=== PATIENT | male | born 1970 | race Caucasian/White ===

== ENCOUNTER → 2017-08-30 | Outpatient (REF) | payer OTHER ==
[2017-08-30 10:41] LABS: IMMMOTILE SPERM CENTRIFUGED ABSENT (ABSENT); IMMOTILE SPERM ABSENT (ABSENT); MOTILE SPERM ABSENT (ABSENT); MOTILE SPERM CENTRIFUGED ABSENT (ABSENT); SEMEN APPEARANCE OPAQUE (OPAQUE); SEMEN VISCOSITY LIQUID (LIQUID); SEMEN pH 8.5 (7.0-8.0); WBC CONCENTRATION >1 M/ml (<=1 M/ml)
== END ==
LOC: M SMT 09:34
DX: Z98.52 Vasectomy status (principal)

== ENCOUNTER → 2018-08-18 | Outpatient (CLI) | payer OTHER ==
--- NOTE | 2018-08-18 19:14 | REP ---
Scrotal sonography: History: Testicular pain. Findings: High-resolution bilateral scrotal sonography is performed. There is no evidence of intratesticular mass on either side. There is a small amount of right-sided hydrocele fluid. There is a 2 mm cyst in the lower pole of the right testis. There is a 2 mm right-sided epididymal cyst. A 7 mm left-sided epididymal cyst is seen. Doppler flow is normal to both testes. Resistive indices are measured at 0.6 on the right and 0.47 on the left. The right testis measures 4.6 x 1.9 x 2.9 cm. Left testicular dimensions are 4.2 x 1.5 x 2.3 cm. Impression: No significant abnormality. Electronically Signed by David Peoples MD 08/18/2018 08:16 P
== END ==
LOC: M RAD 17:32
PROVIDERS: ATTEND Nurse Practitioner Women's Health
DX: N50.819 Testicular pain, unspecified (principal)

== ENCOUNTER → 2020-01-20 | Outpatient (CLI) | payer OTHER | LOC: M LABSMTC 11:04 | PROVIDERS: ATTEND Anesthesiology | DX: Z01.818 Encounter for other preprocedural examination (principal); Z11.59 Encounter for screening for other viral diseases; Z20.828 Contact with and (suspected) exposure to other viral communicable diseases | CPT/HCPCS: C9803; U0003 ==

== ENCOUNTER 2020-01-25 10:48 | Day surgery (SDC) | payer OTHER ==
[~2020-01-25] VITALS: Ht 188 cm; Wt 114.7 kg
[~2020-01-25 10:48] MED LIST: NS 1,000 ML IV ONE
[2020-01-25] MEDS ORDERED: LIDOCAINE 2% 100MG/5ML SDV (FOR ANES.) As Ordered ONE (11:50)
[2020-01-25] MEDS ORDERED: propofoL 500 MG/50 ML VIAL As Ordered ONE (11:50)
--- NOTE | 2020-01-25 12:13 | ROOR ---
Patient Name: Jerry Uriostegui Procedure Date: 01/25/2020 11:48 AM Date of : 1970 Age: 49 Room: [facility] Gender: Male Note Status: Finalized Procedure: Total Colonoscopy to Cecum Indications: Colon cancer screening in patient at increased risk: Colorectal cancer in father Providers: Alec Gardner MD Referring MD: 1. No Referring Physician 1. No Referring Physician, Admin. Requesting Provider: Medicines: Monitored Anesthesia Care Complications: No immediate complications. Procedure: Pre-Anesthesia Assessment: - The heart rate, respiratory rate, oxygen saturations, blood pressure, adequacy of pulmonary ventilation, and response to care were monitored throughout the procedure. The Colonoscope was introduced through the anus and advanced to the cecum, identified by appendiceal orifice and ileocecal valve. The colonoscopy was performed without difficulty. The patient tolerated the procedure well. The quality of the bowel preparation was good. Findings: The perianal and digital rectal examinations were normal. Non-bleeding internal hemorrhoids were found during retroflexion. The hemorrhoids were small and Grade I (internal hemorrhoids that do not prolapse). No other significant abnormalities were identified in a careful examination of the remainder of the colon. The exam was otherwise without abnormality on direct and retroflexion views. Impression: - Non-bleeding internal hemorrhoids. - The examination was otherwise normal on direct and retroflexion views. - No specimens collected. - The exam was otherwise normal to the cecum. Recommendation: - Patient has a contact number available for emergencies. The signs and symptoms of potential delayed complications were discussed with the patient. Return to normal activities tomorrow. Written discharge instructions were provided to the patient. - High fiber diet. - Discharge patient to home. - Continue present medications. - Repeat colonoscopy in 5 years for screening purposes. - Return to referring physician. - The findings and recommendations were discussed with the patient. Alec Gardner MD Alec Gardner MD 01/25/2020 12:12:57 PM Electronically signed by Alec Gardner MD Number of Addenda: 0 Note Initiated On: 01/25/2020 11:48 AM Estimated Blood Loss: Estimated blood loss: none.
[2020-01-25 12:35] VITALS: BP 174/81
== END 2020-01-25 13:01 | disposition home or self-care (01) ==
LOC: M OPP 10:48
PROVIDERS: ATTEND Internal Medicine Gastroenterology
DX: Z12.11 Encounter for screening for malignant neoplasm of colon (principal); Z80.0 Family history of malignant neoplasm of digestive organs; K64.0 First degree hemorrhoids

== ENCOUNTER 2020-04-09 15:26 | Emergency (ER) | payer OTHER ==
[2020-04-09 15:42] VITALS: BP 131/83
[2020-04-09] MEDS ORDERED: ONDA4TAB6 PO (15:57)
== END 2020-04-09 16:11 | disposition home or self-care (01) ==
LOC: M ED 15:26
DX: U07.1 COVID-19 (principal); R11.0 Nausea; R06.02 Shortness of breath; K58.8 Other irritable bowel syndrome

== ENCOUNTER 2021-11-05 09:23 | Emergency (ER) | payer OTHER ==
[~2021-11-05] VITALS: Ht 190.5 cm; Wt 119.0 kg
[~2021-11-05 09:23] MED LIST changes: -NS 1,000 ML IV ONE; +ONDA4TAB6 PO
[2021-11-05] MEDS ORDERED: methocarbamoL 750 MG TAB PO ONE (11:30)
[2021-11-05] MEDS ORDERED: LIDOCAINE 5% (LIDODERM) PATCH TD ONE (11:30)
[2021-11-05] MEDS ORDERED: KETOROLAC 60MG 2ML VIAL IM ONE (11:30)
[2021-11-05] MEDS ORDERED: METH-1165 PO (13:09)
[2021-11-05] MEDS ORDERED: KETO10TAB PO (13:09)
[2021-11-05] MEDS ORDERED: LIDO5DIS41 TD (13:09)
[2021-11-05 13:23] VITALS: BP 149/84
[2021-11-05] MEDS ORDERED: **NOTE PATIENT COMMENT** MISC XX SCH (21:00)
== END 2021-11-05 13:27 | disposition home or self-care (01) ==
LOC: M ED 09:23
DX: S39.012A Strain of muscle, fascia and tendon of lower back, initial encounter (principal); E03.9 Hypothyroidism, unspecified; Z79.891 Long term (current) use of opiate analgesic; Z79.899 Other long term (current) drug therapy; Y93.9 Activity, unspecified; Y92.9 Unspecified place or not applicable
CPT/HCPCS: 72110; 73502; 96372; 99283; J1885

== ENCOUNTER 2023-11-28 09:18 | Day surgery (SDC) | payer OTHER ==
[~2023-11-28] VITALS: Ht 188 cm; Wt 112.8 kg
[~2023-11-28 09:18] MED LIST changes: +KETO10TAB PO; +LIDO5DIS41 TD; +LR 1,000 ML IV SCH; +METH-1165 PO; +ONDA-282 PO; -ONDA4TAB6 PO
[2023-11-28] MEDS: TETRACAINE 0.5% OPHTH SOLN 4ML OS SCH (10:22)
[2023-11-28] MEDS: ATROPINE SULFATE 1% OPHTH SOLN 2ML BTL OS SCH (10:23)
[2023-11-28] MEDS: FLURBIPROFEN 0.03% OPHTH SOLN 2.5 ML OS SCH (10:23)
[2023-11-28] MEDS: PHENYLEPHRINE 2.5% OPHTH SOL 2ML OS SCH (10:23)
[2023-11-28] MEDS ORDERED: MIDAZOLAM INJ 2MG/2ML VIAL As Ordered ONE (11:52)
[2023-11-28] MEDS: LIDOCAINE 1% SDV 5ML VIAL As Ordered ONE (12:27)
[2023-11-28] MEDS: CEFUROXIME 1MG/0.1ML INTRACAMERAL INJ As Ordered ONE (12:27)
[2023-11-28 12:59] VITALS: BP 134/78; TEMP 97.2; O2SAT 98
== END 2023-11-28 13:14 | disposition home or self-care (01) ==
LOC: M SDC 09:18
PROVIDERS: ATTEND Ophthalmology
DX: H25.12 Age-related nuclear cataract, left eye (principal)
CPT/HCPCS: 66984; J0697; J2250; V2788